=== PATIENT | female | born 1985 | race Caucasian/White ===

== ENCOUNTER 2016-05-30 12:35 | Emergency (ER) ==
[2016-05-30 12:41] VITALS: BP 149/89; TEMP 97.3; BMI 28.5
--- NOTE | 2016-05-30 13:49 | ED.PDOC ---
General ED Provider: Dr. DALIA DE LA TORRE JR Chief Complaint: Urinary Problem Stated Complaint: BLOOD IN URINE. RECENT DX WITH ESBL. HAD ONE SHOT ROCEPHIN. [ End ]97.3 79 18 100% 149/89 7/10 norco last night, states stones seen in urine at [facility], has doxycycline and norco prescriptions Time Seen by Physician: 13:48 Mode of Arrival: Walk-In Information Source: Patient Exam Limitations: No limitations Primary Care Provider: KURT CHRISTIANSON Nursing and Triage Documentation Reviewed and Agree: Yes Review of Systems - Review Of Systems Constitutional: Reports: Malaise Eyes: Reports: No symptoms Respiratory: Reports: No symptoms Cardiac: Reports: No symptoms GI: Reports: No symptoms : Reports: Burning (burning right flank ) Musculoskeletal: Reports: Back pain Skin: Reports: No symptoms Neurological: Reports: No symptoms Endocrine: Reports: No symptoms Hematologic/Lymphatic: Reports: No symptoms All Other Systems: Other Past Medical History - Past Medical History Previously Healthy: Yes Endocrine: Reports: None Cardiovascular: Reports: None Respiratory: Reports: None Hematological: Reports: None Gastrointestinal: Reports: None Genitourinary: Reports: UTI (esbl/uti's, HAS 1 KIDNEY), Kidney stones (kidney disease uti kidney stone) Neuro/Psych: Reports: None Musculoskeletal: Reports: None Cancer: Reports: None Last Menstrual Period: 2 WEEKS - Surgical History General Surgical History: Reports: (x2), Appendectomy, Cholecystectomy , Hernia Repair (belly button removed d/t hernia and staph) - Family History Family History: Reports: None - Social History Smoking Status: Never smoker Hx Substance Use: No Alcohol Screening: None Physical Exam - Physical Exam Appearance: Ill-appearing Ill-appearing: Moderate Pain Distress: Moderate Eyes: AMADOU, EOMI, Conjunctiva clear ENT: Ears normal, Nose normal, Oropharynx normal Neck: Supple Respiratory: Airway patent, Breath sounds clear, Breath sounds equal, Respirations nonlabored Cardiovascular: RRR, Pulses normal, No rub, No murmur GI/: Soft Musculoskeletal: Normal strength, ROM intact, No edema, No calf tenderness Skin: Warm, Dry, Normal color Neurological: Sensation intact, Motor intact, Reflexes intact, Cranial nerves intact, Alert, Oriented Psychiatric: Affect appropriate, Mood appropriate, Anxious Critical Care Note - Critical Care Note Total Time (mins): 0 Course - Course Orders, Labs, Meds: Lab Review 05/30/16 13:10 Urine Color Red Urine Clarity Turbid Urine pH 6.0 Ur Specific [place] >=1.030 Urine Protein 3+ Urine Glucose (UA) Negative Urine Ketones Negative Urine Blood 3+ Urine Nitrite Negative Urine Bilirubin Negative Urine Urobilinogen 0.2 Ur Leukocyte Esterase Negative Urine Microscopic RBC Tntc Urine Microscopic WBC 5-10 Ur Squamous Epith Cells Not present Urine Bacteria Trace Orders Category Date Time Status UA [URINALYSIS C & S IF INDICATED] Stat LAB 05/30/16 13:10 Completed URINE CULTURE Stat LAB 05/30/16 13:10 Received Vital Signs: Temp Pulse Resp BP Pulse Ox 05/30/16 12:37 97.3 F L 79 18 149/89 H 100 Departure - Departure Time of Disposition: 14:03 Disposition: HOME SELF-CARE Discharge Problem: Urolithiasis, Hematuria Instructions: Kidney Stones (ED), Urinary Tract Infection in Women (ED) Condition: Good Pt referred to PMD for follow-up: Yes Additional Instructions: reommend use doxycycline as prescribed for infection, norco as prescribed for pain increase fluid intake 10 to 12 cups clear liquid daily if pain on urination increase fluids by two cups if unable to void return or to urologist for catheter if needed call urologist in morning for follow up discuss Nephrology evaluation with your physician return if fever over 101.0 if lightheaded if palpitations Allergies/Adverse Reactions: Allergies chlordiazepoxide [From Librax (with clidinium)] Adverse Reaction (Verified 01/11 16:24) chlordiazepoxide HCl [From Librax (with methscopolamine)] Adverse Reaction ( Verified 01/12/16 16:24) ciprofloxacin [From Cipro] Adverse Reaction (Verified 01/12/16 16:24) ciprofloxacin HCl [From Cipro] Adverse Reaction (Verified 01/12/16 16:24) clidinium bromide [From Librax (with clidinium)] Adverse Reaction (Verified 16:24) codeine Adverse Reaction (Verified 01/12/16 16:24) epinephrine Adverse Reaction (Verified 01/12/16 16:24) escitalopram oxalate [From Lexapro] Adverse Reaction (Verified 01/12/16 16:24) hyoscyamine Adverse Reaction (Verified 01/12/16 16:24) iodine Adverse Reaction (Verified 01/12/16 16:24) levofloxacin [From Levaquin] Adverse Reaction (Verified 01/12/16 16:24) lidocaine Adverse Reaction (Verified 01/12/16 16:24) methenamine mandelate [From Mandelamine] Adverse Reaction (Verified 01/12/16 16: 24) methylscopolamine nit [From Librax (with methscopolamine)] Adverse Reaction ( Verified 01/12/16 16:24) nitrofurantoin [From Macrobid] Adverse Reaction (Verified 01/12/16 16:24) nitrofurantoin macrocrystal [From Macrobid] Adverse Reaction (Verified 01/12/16 16:24) ondansetron HCl [From Zofran (as hydrochloride)] Adverse Reaction (Verified 16:24) oxycodone Adverse Reaction (Verified 01/12/16 16:24) phenytoin sodium [From Dilantin] Adverse Reaction (Verified 01/12/16 16:24) phenytoin sodium extended [From Dilantin] Adverse Reaction (Verified 01/12/16 16 :24) quetiapine fumarate [From Seroquel] Adverse Reaction (Verified 01/12/16 16:24) Sulfa (Sulfonamide Antibiotics) Adverse Reaction (Verified 01/12/16 16:24) tetracycline Adverse Reaction (Verified 01/12/16 16:24) all rafael Adverse Reaction (Uncoded 01/12/16 16:24) Home Medications: Ambulatory Orders Zolpidem Tartrate [Ambien] 10 mg PO BEDTIME PRN 09/25/14 Cephalexin [Keflex] 500 mg PO Q8HR #21 ml 01/12/16
[2016-05-30 13:57] LABS: BILIRUBIN,URINE Negative (NEGATIVE); KETONES,URINE Negative (NEGATIVE); LEUKOCYTE ESTERASE ,URINE Negative (NEGATIVE); NITRITE,URINE Negative (NEGATIVE); PROTEIN,URINE 3+ (NEGATIVE); URINE, BLOOD 3+ (NEGATIVE)
[2016-05-30 14:02] LABS: ADD URINE MICROSCOPIC YES
[2016-05-30 14:03] LABS: BACTERIA,URINE TRACE (NOT PRESENT)
[2016-05-30] MEDS ORDERED: MORPHINE 4 MG/ML SYRINGE IM STA (14:28)
[2016-05-30] MEDS ORDERED: ZOFRAN 4 MG/2 ML IM STA (14:28)
[2016-05-30] MEDS ORDERED: PHENERGAN 25 MG/ML VIAL IM STA (14:30)
== END 2016-05-30 14:52 | disposition home or self-care (01) ==
LOC: ED 12:35
DX: N20.9 Urinary calculus, unspecified (principal); N39.0 Urinary tract infection, site not specified; Z87.442 Personal history of urinary calculi; Z79.899 Other long term (current) drug therapy
CPT/HCPCS: 81001; 87086; 96372; 99282